=== PATIENT | male | born 2000 | race African-American/Black ===

== ENCOUNTER 2019-09-07 19:23 | Emergency (ER) | payer BC ==
[~2019-09-07] VITALS: Ht 188 cm; Wt 127.0 kg
[2019-09-07] MEDS ORDERED: KETOROLAC TROMETHAMINE 60 MG/2 ML VIAL IM STA (19:57)
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
[2019-09-07] MEDS ORDERED: CYCLOBENZAPRINE5 MG PO (21:02)
[2019-09-07] MEDS ORDERED: PREDNISONE20 MG PO (21:02)
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
== END 2019-09-07 20:45 | disposition home or self-care (01) ==
LOC: FSED 19:23
DX: S39.012A Strain of muscle, fascia and tendon of lower back, initial encounter (principal); V43.52XA Car driver injured in collision with other type car in traffic accident, initial encounter; Y92.488 Other paved roadways as the place of occurrence of the external cause
CPT/HCPCS: 72100; 99283

== ENCOUNTER 2021-07-03 13:08 | Emergency (ER) | payer SELFPAY ==
[~2021-07-03] VITALS: Ht 188 cm; Wt 147.0 kg
[~2021-07-03 13:08] MED LIST: CYCLOBENZAPRINE5 MG PO; PREDNISONE20 MG PO
[2021-07-03] MEDS ORDERED: ATENOLOL50 MG PO (13:26)
== END 2021-07-03 13:30 | disposition home or self-care (01) ==
LOC: FSED 13:11
DX: I10 Essential (primary) hypertension (principal)
CPT/HCPCS: 99282